=== PATIENT | male | born 2000 | race Caucasian/White ===

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

== ENCOUNTER 2023-09-01 18:07 | Emergency (ER) | payer OTHER ==
[~2023-09-01] VITALS: Ht 170.1 cm; Wt 72.6 kg
[2023-09-01] MEDS ORDERED: FLUONAZOLE150 M1 PO (19:44)
== END 2023-09-01 19:49 | disposition home or self-care (01) ==
LOC: ED 18:07
DX: B35.4 Tinea corporis (principal); F90.9 Attention-deficit hyperactivity disorder, unspecified type; Z98.890 Other specified postprocedural states

== ENCOUNTER 2023-09-07 18:39 | Emergency (ER) | payer OTHER ==
[~2023-09-07] VITALS: Ht 170.1 cm; Wt 72.6 kg
[~2023-09-07 18:39] MED LIST changes: +FLUONAZOLE150 M1 PO
[2023-09-09] MEDS ORDERED: PREDNISONE20 M1 PO (17:40)
== END 2023-09-07 19:50 | disposition home or self-care (01) ==
LOC: ED 18:39
DX: L25.9 Unspecified contact dermatitis, unspecified cause (principal); F90.9 Attention-deficit hyperactivity disorder, unspecified type; Z98.890 Other specified postprocedural states

== ENCOUNTER 2023-09-20 16:31 | Emergency (ER) | payer OTHER ==
[~2023-09-20] VITALS: Ht 175.2 cm; Wt 72.6 kg
[~2023-09-20 16:31] MED LIST changes: +PREDNISONE20 M1 PO
[2023-09-20] MEDS ORDERED: ATHLETIC FOOT C30 GM T (17:00)
[2023-09-20] MEDS ORDERED: GRISEOFULVIN500 M1 PO (17:00)
== END 2023-09-20 17:02 | disposition home or self-care (01) ==
LOC: ED 16:31
DX: B35.0 Tinea barbae and tinea capitis (principal); F90.9 Attention-deficit hyperactivity disorder, unspecified type; Z79.899 Other long term (current) drug therapy

== ENCOUNTER 2023-10-25 01:51 | Emergency (ER) | payer SELFPAY ==
[~2023-10-25] VITALS: Ht 175.2 cm; Wt 72.6 kg
[~2023-10-25 01:51] MED LIST changes: +ATHLETIC FOOT C30 GM T; +GRISEOFULVIN500 M1 PO
[2023-10-25 02:27] LABS: BASO # 0.1 10*3/uL (0.0-0.1); BASO % 0.9 % (0.0-1.0); EOS # 1.3 10*3/uL (0.0-0.4); EOS % 17.2 % (1.0-4.0); HEMATOCRIT 44.2 % (42.0-52.0); LYMPH # 2.4 10*3/uL (1.3-4.4); LYMPH % 30.8 % (27.0-41.0); MEAN CELL VOLUME 89.7 fl (80.0-94.0); MEAN CORPUSCULAR HGB 30.8 pg (27.0-31.0); MEAN CORPUSCULAR HGB CONC 34.4 g/dl (33.0-37.0); MEAN PLATELET VOLUME 9.8 fl (9.6-12.3); MONO # 0.8 10*3/uL (0.1-1.0); MONO % 10.5 % (3.0-9.0); NEUT # 3.2 10*3/uL (2.3-7.9); NEUT % 40.3 % (47.0-73.0); PLATELET COUNT AUTOMATED 226 10*3/uL (130-400); RED BLOOD COUNT 4.93 10*6/uL (4.50-5.90); RED CELL DISTRI WIDTH 11.9 % (0-14.5); WHITE BLOOD COUNT 7.8 10*3/uL (4.8-10.8)
[2023-10-25 02:49] LABS: BUN 11 mg/dl (9-23); CHLORIDE 107 mmol/L (98-107); POTASSIUM 3.9 mmol/L (3.4-5.1)
[2023-10-25] MEDS ORDERED: VIBRAMYCIN HYC100 MG PO (03:20)
[2023-10-25] MEDS ORDERED: CIPROFLOXACIN H10 ML OPH (03:20)
== END 2023-10-25 03:31 | disposition home or self-care (01) ==
LOC: ED 01:51
PROVIDERS: Internal Medicine
DX: H10.9 Unspecified conjunctivitis (principal); Z20.822 Contact with and (suspected) exposure to COVID-19; B34.9 Viral infection, unspecified; L03.90 Cellulitis, unspecified; R07.89 Other chest pain; F90.9 Attention-deficit hyperactivity disorder, unspecified type; F17.210 Nicotine dependence, cigarettes, uncomplicated; Z98.890 Other specified postprocedural states

== ENCOUNTER 2024-05-04 03:10 | Emergency (ER) | payer SELFPAY ==
[~2024-05-04] VITALS: Ht 175.2 cm; Wt 72.6 kg
[~2024-05-04 03:10] MED LIST changes: +CIPROFLOXACIN H10 ML OPH; +VIBRAMYCIN HYC100 MG PO
[2024-05-04] MEDS ORDERED: IBUPROFEN 600 MG TAB PO ONE (03:50)
[2024-05-04] MEDS ORDERED: NAPROSYN EC375 MG PO (03:50)
== END 2024-05-04 04:12 | disposition home or self-care (01) ==
LOC: ED 03:10
DX: S96.912A Strain of unspecified muscle and tendon at ankle and foot level, left foot, initial encounter (principal); S50.12XA Contusion of left forearm, initial encounter; F90.9 Attention-deficit hyperactivity disorder, unspecified type; Z98.890 Other specified postprocedural states; Z87.891 Personal history of nicotine dependence; W03.XXXA Other fall on same level due to collision with another person, initial encounter; Y93.02 Activity, running; Y92.89 Other specified places as the place of occurrence of the external cause; Y99.8 Other external cause status

== ENCOUNTER 2025-06-14 20:29 | Emergency (ER) | payer SELFPAY ==
[~2025-06-14] VITALS: Ht 172.7 cm; Wt 68.0 kg
[~2025-06-14 20:29] MED LIST changes: +NAPROSYN EC375 MG PO
[2025-06-14] MEDS ORDERED: AMOX-CLAV 875-1 EACH PO (21:51)
[2025-06-14] MEDS ORDERED: Amoxicillin/Clavulanate Pota 875 MG TAB PO ONE (21:55)
== END 2025-06-14 22:03 | disposition home or self-care (01) ==
LOC: ED 20:29
DX: K04.7 Periapical abscess without sinus (principal); F90.9 Attention-deficit hyperactivity disorder, unspecified type; Z98.890 Other specified postprocedural states

== ENCOUNTER 2025-06-22 20:09 | Emergency (ER) | payer SELFPAY ==
[~2025-06-22] VITALS: Ht 172.7 cm; Wt 70.8 kg
[~2025-06-22 20:09] MED LIST changes: +AMOX-CLAV 875-1 EACH PO
[2025-06-22] MEDS ORDERED: Ondansetron Hydrochloride 4 MG TAB SL ONE (20:30)
[2025-06-22] MEDS ORDERED: CLINDAMYCIN HCL 300 MG CAPSULE PO ONE (20:30)
[2025-06-22] MEDS ORDERED: Acetaminophen/Hydrocodone 5 MG/325 MG TABLET PO ONE (20:30)
[2025-06-22] MEDS ORDERED: CLINDAMYCIN HC300 MG PO (20:33)
== END 2025-06-22 20:50 | disposition home or self-care (01) ==
LOC: ED 20:09
DX: K02.9 Dental caries, unspecified (principal); Z98.890 Other specified postprocedural states

== ENCOUNTER 2025-07-04 15:49 | Emergency (ER) | payer SELFPAY ==
[~2025-07-04] VITALS: Ht 177.8 cm; Wt 68.0 kg
[~2025-07-04 15:49] MED LIST changes: +CLINDAMYCIN HC300 MG PO
== END 2025-07-04 17:51 | disposition home or self-care (01) ==
LOC: ED 15:49
DX: J06.9 Acute upper respiratory infection, unspecified (principal); M79.18 Myalgia, other site; F90.9 Attention-deficit hyperactivity disorder, unspecified type; Z98.890 Other specified postprocedural states